=== PATIENT | male | born 1990 | race Hispanic/Latino ===

== ENCOUNTER → 2023-09-25 | Emergency (ER) | payer SELFPAY ==
[~2023-09-25] MED LIST: NA CHLORIDE 0.9% 1,000 ML ONE
[2023-09-25 06:33] LABS: Absolute Lymphocytes (CBC) 1.9 K/uL (0.7-4.9); Lymphocytes % 25.4 % (15.3-44.8); MCV 91.8 fL (80-100); MPV 7.6 fL (7.6-11.3); Platelets 242 thou/uL (152-406); RBC Red Blood Cell Count 4.35 M/uL (4.33-5.43)
[2023-09-25 06:57] LABS: ALT/SGPT 40 U/L (16-61); AST/SGOT 42 U/L (15-37); Albumin 3.8 g/dL (3.4-5.0); Alkaline Phosphatase 44 U/L (45-117); BUN Blood Urea Nitrogen 11 mg/dL (7-18); Bicarbonate 26 mEq/L (21-32); Bilirubin Direct 0.1 mg/dL (0-0.2); Bilirubin Indirect, Calculated 0.1 mg/dL (0.2-0.8); Bilirubin Total 0.2 mg/dL (0.2-1.0); Creatine Phosphokinase 834 U/L (39-308); Glomerular Filtration Rate 116 ml/min (=/>90); Glucose Level 137 mg/dL (74-106); Potassium 3.5 mEq/L (3.5-5.1); Protein, Total 7.3 g/dL (6.4-8.2); Sodium Level 139 mEq/L (136-145)
--- NOTE | 2023-09-25 09:58 | ER ---
Nurse's Notes [facility] Name: Felix Benavides Age: 33 yrs Sex: Male : 1990 Arrival Date: 09/25/2023 Time: 06:13 Bed 2 Private MD: Diagnosis: Abuse of other non-psychoactive substances;Cannabis abuse, uncomplicated Presentation: 09/25 06:15 Chief complaint: EMS states: after taking psychedelic gummies and 1/2 of a chocolate km8 bar pt began having dizziness and anxiety; pt HR was 150 upon arrival; pt given Zofran and NS, HR now 120. Chief complaint: Patient states: pt reports taking Cialis, drinking alcohol, and taking the psychedelic drugs for the first time today. Coronavirus screen: Client denies travel out of the [place] in the last 14 days. Ebola Screen: No symptoms or risks identified at this time. Initial Sepsis Screen: Does the patient meet any 2 criteria? HR > 90 bpm. No. Patient's initial sepsis screen is negative. Does the patient have a suspected source of infection? No. Patient's initial sepsis screen is negative. Risk Assessment: Do you want to hurt yourself or someone else? Patient reports no desire to harm self or others. Onset of symptoms was September 25, 2023 at 05:00. 06:15 Method Of Arrival: EMS: [facility] km8 06:15 Acuity: [place]ST[place] 2 km8 06:21 Care prior to arrival: Medication(s) given: Normal saline infusion, 500 mL, zofran 4 km8 mg, IV initiated. 18 GA, in the right antecubital area. Triage Assessment: 06:18 General: Appears in no apparent distress. comfortable, Behavior is cooperative, flat, km8 restless. Pain: Denies pain. EENT: No signs and/or symptoms were reported regarding the EENT system. Neuro: Larry Agitation-Sedation Scale (RASS): -1 Drowsy Level of Consciousness is obeys commands, lethargic, Oriented to person, place, situation. Cardiovascular: Reports chest pain, Capillary refill < 3 seconds Patient's skin is warm and dry. Rhythm is regular. Respiratory: Airway is patent Respiratory effort is even, unlabored, Respiratory pattern is regular, symmetrical. GI: No signs and/or symptoms were reported involving the gastrointestinal system. : No signs and/or symptoms were reported regarding the genitourinary system. Derm: Skin is intact, is healthy with good turgor, Skin is dry, Skin is pink, warm \T\ dry. normal, Skin temperature is warm. Musculoskeletal: No signs and/or symptoms reported regarding the musculoskeletal system. Circulation, motion, and sensation intact. Range of motion: intact in all extremities. Historical: - Allergies: :18 No Known Allergies; km8 - Home Meds: 06:18 None [Active]; km8 - PMHx: 06:18 None; km8 - PSHx: 06:18 None; km8 - Immunization history:: Client reports having NOT received the Covid vaccine. Flu vaccine is not up to date. - Social history:: Smoking status: Patient denies any tobacco usage or history of. Patient uses alcohol, first time doing drugs today. - Family history:: not pertinent. Screenin:20 [facility] ED Fall Risk Assessment (Adult) History of falling in the last 3 months, km8 including since admission No falls in past 3 months (0 pts) Confusion or Disorientation Yes (5 pts) Intoxicated or Sedated Yes (3 pts) Impaired Gait No (0 pts) Mobility Assist Device Used No (0 pt) Altered Elimination Yes (1 pt) Score/Fall Risk Level 3 or more points = High Risk Oriented to surroundings, Maintained a safe environment, Educated pt \T\ family on fall prevention, incl call for assistance when getting out of bed, Assessed \T\ reinforced patient's understanding of fall precautions, Provided non-skid footwear, Hourly rounding (assess needs \T\ fall precautionary measures) done, Implemented a Fall Risk Plan of Care, Remained w/in arm's length of patient and in sight while toileting, Remained with patient while ambulating. Abuse screen: Denies threats or abuse. Denies injuries from another. Nutritional screening: No deficits noted. Tuberculosis screening: No symptoms or risk factors identified. Assessment: 06:20 General: see triage assessment/notes. [facility] 07:05 Reassessment: Pt with eyes closed, easy to awaken to verbal stimuli. . General: aa5 Behavior is sleepy. Pain: Denies pain. Neuro: Oriented to person, time, situation. Cardiovascular: Heart tones S1 S2 present Rhythm is sinus tachycardia. Respiratory: Airway is patent Respiratory effort is even, unlabored, relaxed, Respiratory pattern is regular, symmetrical. GI: Abdomen is non-distended, Bowel sounds present X 4 quads. Abd is soft and non tender X 4 quads. : No signs and/or symptoms were reported regarding the genitourinary system. pt attempting to void into urinal at this time. EENT: No signs and/or symptoms were reported regarding the EENT system. Derm: Skin is pink, warm \T\ dry. Musculoskeletal: Range of motion: intact in all extremities. 07:35 Reassessment: Pt unable to void at this time, currently sleeping. . aa5 08:10 Reassessment: Pt resting with eyes closed, easy to awaken to verbal stimuli. Pt is A\T\O aa5 x person, place, time, situation. Pt attempted to void, states he is currently unable to . . 09:00 Reassessment: Pt resting with eyes closed. . Neuro: Level of Consciousness is alert, aa5 obeys commands, Oriented to person, place, time, situation. 09:00 Reassessment: Pt has not been able to void, MD aware. . aa5 09:45 Reassessment: Patient is alert, oriented x 3, equal unlabored respirations, skin aa5 warm/dry/pink. 10:15 Reassessment: Patient is alert, oriented x 3, equal unlabored respirations, skin aa5 warm/dry/pink. Patient states feeling better. attempting to call someone for ride home. . 10:35 Reassessment: Patient is alert, oriented x 3, equal unlabored respirations, skin aa5 warm/dry/pink. Vital Signs: 06:15 BP 136 / 92; Pulse 122; Resp 18; Temp 98.2(O); Pulse Ox 98% on R/A; Weight 77.11 kg km8 (R); Height 5 ft. 9 in. ; Pain 0/10; 06:20 BP 118 / 87; Pulse 113; Resp 14; Pulse Ox 94% on R/A; km8 06:45 BP 113 / 66; Pulse 104; Resp 16; Pulse Ox 94% on R/A; km8 07:39 BP 116 / 78; Pulse 103; Resp 15 S; Temp 97.3(TE); Pulse Ox 96% on R/A; aa5 08:15 BP 109 / 69; Pulse 107; Resp 16 S; Pulse Ox 96% on R/A; aa5 09:45 BP 110 / 70; Pulse 105; Resp 18 S; Temp 97.5(TE); Pulse Ox 97% on R/A; aa5 06:15 Body Mass Index 25.10 (77.11 kg, 175.26 cm) km8 06:15 Pain Scale: Adult km8 Tati Coma Score: 06:20 Eye Response: to voice(3). Motor Response: obeys commands(6). Verbal Response: km8 confused(4). Total: 13. ED Course: 06:15 Patient arrived in ED. km8 06:15 Joaquim Rolon MD is Attending Physician. rt 06:18 Triage completed. km8 06:18 Arm band placed on right wrist. km8 06:20 Patient has correct armband on for positive identification. Placed in gown. Bed in low km8 position. Call light in reach. Side rails up X 1. Client placed on continuous cardiac and pulse oximetry monitoring. NIBP monitoring applied. Warm blanket given. 06:20 No provider procedures requiring assistance completed. Maintain EMS IV. Dressing km8 intact. Site clean \T\ dry. Gauge \T\ site: 18 right AC. Patient maintains SpO2 saturation greater than 95% on room air. 06:25 Inserted saline lock: 18 gauge in left forearm, using aseptic technique. Blood km8 collected. 06:55 Salicylate Sent. nw1 06:55 Acetaminophen Sent. nw1 06:55 UDS Sent. nw1 07:02 Attending Physician role handed off by Joaquim Rolon MD ec2 07:02 Kam Manning MD is Attending Physician. ec2 07:09 Mila Virk, RADHA is Primary Nurse. aa5 08:10 repeat CPK drawn and sent to lab. aa5 10:10 intact, bleeding controlled, No redness/swelling at site. Pressure dressing applied, aa5 18G to R AC and 18G to L FA dc'd. Administered Medications: 06:33 Drug: NS 0.9% IV 1000 ml IV at 1 bolus Per protocol; 1000 mL bolus Route: IV; Rate: 1 km8 bolus; Site: left forearm; 07:17 Follow up: IV Status: Completed infusion; IV Intake: 1000ml aa5 07:17 Drug: NS 0.9% IV 1000 ml IV at 1 bolus Per protocol; 1000 mL bolus Route: IV; Rate: 1 aa5 bolus; Site: left forearm; 08:10 Follow up: IV Status: Completed infusion; IV Intake: 1000ml aa5 Medication: 06:20 VIS not applicable for this client. km8 Intake: 07:17 IV: 1000ml; Total: 1000ml. aa5 08:10 IV: 1000ml; Total: 2000ml. aa5 Outcome: 09:57 Discharge ordered by . ally 10:35 Discharged to home ambulatory, with friend, aa5 10:35 Condition: improved 10:35 Discharge instructions given to patient, Instructed on discharge instructions, follow up and referral plans. Demonstrated understanding of instructions, follow-up care, 10:37 Patient left the ED. aa5 Signatures: Mila Virk, RN RN aa5 Joaquim Rolon MD MD rt Kam Manning MD MD ec2 Melanie Palmer RN RN km8 Felipa Harmon RN RN nw1
--- NOTE | 2023-09-25 09:58 | EDPHYS ---
Physician Documentation [facility] Name: Felix Benavides Age: 33 yrs Sex: Male : 1990 Arrival Date: 09/25/2023 Time: 06:13 Bed 2 Private MD: ED Physician Kam Manning HPI: 09/25 06:21 This 33 yrs old Male presents to ER via EMS with complaints of Palpitations. rt 06:21 Patient presents to the ED with palpitations, shortness of breath after consuming THC rt Gummies. Patient has consumed more alcohol overnight. Denies taking other substances. Denies other acute complaints at this time, symptoms are moderate severity, no other aggravating elevating factors. EMS states the patient's heart rate was initially about 150, was given Zofran, IV fluids.. Historical: - Allergies: 06:18 No Known Allergies; km8 - Home Meds: 06:18 None [Active]; km8 - PMHx: 06:18 None; km8 - PSHx: 06:18 None; km8 - Immunization history:: Client reports having NOT received the Covid vaccine. Flu vaccine is not up to date. - Social history:: Smoking status: Patient denies any tobacco usage or history of. Patient uses alcohol, first time doing drugs today. - Family history:: not pertinent. ROS: 06:21 Constitutional: Negative for fever, chills, and weight loss, Respiratory: Negative for rt shortness of breath, cough, wheezing, and pleuritic chest pain, Abdomen/GI: Negative for abdominal pain, nausea, vomiting, diarrhea, and constipation, MS/Extremity: Negative for injury and deformity, Skin: Negative for injury, rash, and discoloration, Neuro: Negative for headache, weakness, numbness, tingling, and seizure, Psych: Negative for depression, anxiety, suicide ideation, homicidal ideation, and hallucinations, 06:21 Cardiovascular: Positive for palpitations, Negative for chest pain, Exam: 06:21 Constitutional: This is a well developed, well nourished patient who is awake, alert, rt and in no acute distress. Head/Face: Normocephalic, atraumatic. Eyes: Pupils equal round and reactive to light, extra-ocular motions intact. Lids and lashes normal. Conjunctiva and sclera are non-icteric and not injected. Cornea within normal limits. Periorbital areas with no swelling, redness, or edema. Chest/axilla: Normal chest wall appearance and motion. Nontender with no deformity. No lesions are appreciated. Cardiovascular: Regular rate and rhythm with a normal S1 and S2. No gallops, murmurs, or rubs. Normal PMI, no JVD. No pulse deficits. Respiratory: Lungs have equal breath sounds bilaterally, clear to auscultation and percussion. No rales, rhonchi or wheezes noted. No increased work of breathing, no retractions or nasal flaring. Abdomen/GI: Soft, non-tender, with normal bowel sounds. No distension or tympany. No guarding or rebound. No evidence of tenderness throughout. Skin: Warm, dry with normal turgor. Normal color with no rashes, no lesions, and no evidence of cellulitis. MS/ Extremity: Pulses equal, no cyanosis. Neurovascular intact. Full, normal range of motion. Neuro: Awake and alert, GCS 15, oriented to person, place, time, and situation. Cranial nerves II-XII grossly intact. Motor strength 5/5 in all extremities. Sensory grossly intact. Cerebellar exam normal. Normal gait. Psych: Awake, alert, with orientation to person, place and time. Behavior, mood, and affect are within normal limits. 06:33 ECG was reviewed by the Attending Physician. rt Vital Signs: 06:15 BP 136 / 92; Pulse 122; Resp 18; Temp 98.2(O); Pulse Ox 98% on R/A; Weight 77.11 kg km8 (R); Height 5 ft. 9 in. ; Pain 0/10; 06:20 BP 118 / 87; Pulse 113; Resp 14; Pulse Ox 94% on R/A; km8 06:45 BP 113 / 66; Pulse 104; Resp 16; Pulse Ox 94% on R/A; km8 07:39 BP 116 / 78; Pulse 103; Resp 15 S; Temp 97.3(TE); Pulse Ox 96% on R/A; aa5 08:15 BP 109 / 69; Pulse 107; Resp 16 S; Pulse Ox 96% on R/A; aa5 09:45 BP 110 / 70; Pulse 105; Resp 18 S; Temp 97.5(TE); Pulse Ox 97% on R/A; aa5 06:15 Body Mass Index 25.10 (77.11 kg, 175.26 cm) km8 06:15 Pain Scale: Adult km8 Poneto Coma Score: 06:20 Eye Response: to voice(3). Motor Response: obeys commands(6). Verbal Response: km8 confused(4). Total: 13. MDM: 06:15 Patient medically screened. rt 07:04 Data reviewed: vital signs. ec2 07:05 ED course: Patient signed out to me by previous physician, in brief patient arrives ec2 today with palpitations and anxiety after taking the Gummies. Patient with an elevated CPK, patient receiving crystalloid, will give additional crystalloid fluid bolus, repeat CPK.. 08:59 ED course: Repeat CPK is downtrending, will discharge home, suspect this is secondary ec2 to the patient's substance. Will discharge with family member. 09/25 06:16 Order name: Basic Metabolic Panel; Complete Time: 07:01 rt 09/25 06:16 Order name: CBC with Diff; Complete Time: 06:48 rt 09/25 06:16 Order name: LFT's; Complete Time: 07:01 rt 09/25 06:16 Order name: Magnesium; Complete Time: 07:01 rt 09/25 06:16 Order name: Troponin HS; Complete Time: 07:01 rt 09/25 06:16 Order name: CPK; Complete Time: 07:01 rt 09/25 06:16 Order name: ETOH Level; Complete Time: 06:48 rt 09/25 06:16 Order name: Acetaminophen; Complete Time: 07:01 rt 09/25 06:16 Order name: Salicylate; Complete Time: 07:19 rt 09/25 07:57 Order name: CPK; Complete Time: 08:59 ec2 09/25 06:16 Order name: EKG; Complete Time: 06:16 rt 09/25 06:16 Order name: Cardiac monitoring; Complete Time: 06:22 rt 09/25 06:16 Order name: EKG - Nurse/Tech; Complete Time: 06:27 rt 09/25 06:16 Order name: IV Saline Lock; Complete Time: 06:22 rt 09/25 06:16 Order name: Labs collected and sent; Complete Time: 06:22 rt 09/25 06:16 Order name: O2 Per Protocol; Complete Time: 06:22 rt 09/25 06:16 Order name: O2 Sat Monitoring; Complete Time: 06:22 rt EC:33 Rate is 131 beats/min. Rhythm is regular, Sinus tachycardia with No ectopy. QRS Mozier is rt Normal. VA interval is normal. QRS interval is normal. QT interval is normal. No Q waves. T waves are Normal. No ST changes noted. Administered Medications: 06:33 Drug: NS 0.9% IV 1000 ml IV at 1 bolus Per protocol; 1000 mL bolus Route: IV; Rate: 1 km8 bolus; Site: left forearm; 07:17 Follow up: IV Status: Completed infusion; IV Intake: 1000ml aa5 07:17 Drug: NS 0.9% IV 1000 ml IV at 1 bolus Per protocol; 1000 mL bolus Route: IV; Rate: 1 aa5 bolus; Site: left forearm; 08:10 Follow up: IV Status: Completed infusion; IV Intake: 1000ml aa5 Disposition Summary: 09/25/23 09:57 Discharge Ordered Notes: Location: Home ec2 Condition: Stable ec2 Diagnosis - Abuse of other non-psychoactive substances ec2 - Cannabis abuse, uncomplicated ec2 Followup: ec2 - With: Private Physician - When: - Reason: Re-evaluation by your physician Discharge Instructions: - Discharge Summary Sheet ec2 - Cannabis Use Disorder ec2 Forms: - Medication Reconciliation Form ec2 - Thank You Letter ec2 - Antibiotic Education ec2 - Prescription Opioid Use ec2 - Patient Portal Instructions ec2 - Leadership Thank You Letter ec2 Signatures: Dispatcher [employer] Mila Alanis RN RN aa5 Joaquim Rolon MD MD rt Kam Manning MD MD ec2 Melanie Palmer RN RN km8 Corrections: (The following items were deleted from the chart) 09:09 08:59 ED course: Repeat CPK is downtrending, will discharge home, suspect this is ec2 secondary to the patient's substance. Return precautions given.. ec2
[2023-09-25 11:08] VITALS: BP 116/78; TEMP 97.3; O2SAT 96
--- NOTE | 2023-09-26 12:23 | EKG ---
Test Date: 2023-09-25 Test Time: 06:23:13 Supervisor Net Making: RAMESH MEASUREMENT RESULTS: Intervals: Rate: 131 IL: 136 QRSD: 96 QT: 302 QTc: 445 [place]: P: 56 IL: 136 QRS: 82 T: -2 INTERPRETIVE STATEMENTS: Sinus tachycardia Otherwise normal ECG No previous ECG available for comparison Electronically Signed On 09-26-23 12:19:57 SPOOLER OPERATOR by Hiram Yuen
== END ==
LOC: ER 06:13
DX: F12.10 Cannabis abuse, uncomplicated (principal); F55.8 Abuse of other non-psychoactive substances
CPT/HCPCS: 36415; 80048; 80076; 80143; 80179; 82077; 82550; 83735; 84484; 85025; 93005; 96360; 96361; 99285; J7030